=== PATIENT | male | born 1955 | race African-American/Black ===

== ENCOUNTER 2022-06-17 10:24 | Inpatient (IN) | payer MEDICARE, MEDICAID ==
[~2022-06-17] VITALS: Ht 182.9 cm; Wt 92.2 kg
[~2022-06-17 10:24] MED LIST: DOC-Q-LACE; GABAPENTIN; METRONIDAZOLE; SIMVASTATIN; VICODIN
[2022-06-17] MEDS ORDERED: ASPIRIN 81MG TABLET PO ONE (11:30)
[2022-06-17] MEDS ORDERED: SODIUM CHLORIDE 0.9% 250 ML IV ONE (11:30)
[2022-06-17] MEDS ORDERED: PIPERACILLIN/TAZ 3.375G PREMIX 50 ML IV ONE ×2 (14:00→21:45)
[2022-06-17 15:45] LABS: HEMATOCRIT. 41.3 % (42.0-52.0); HEMOGLOBIN. 14.4 g/dL (14.0-18.0); MEAN CORPUSCULAR HEMOGLOBIN 34.2 pg (28.0-32.0); MEAN CORPUSCULAR VOLUME 97.8 fL (80.0-94.0); MEAN PLATELET VOLUME 9.6 fl (7.4-10.4); PLATELET 306 x1000/uL (130-400); RED BLOOD CELL COUNT 4.22 mill/uL (4.7-6.1); RED CELL DISTRIBUTION WIDTH 13.7 % (11.6-14.6)
[2022-06-17 15:52] LABS: CHLORIDE 103 mEq/L (98-107)
[2022-06-17] MEDS ORDERED: ACETAMINOPHEN 325MG TABLET PO PRN ×2 (16:00)
[2022-06-17] MEDS ORDERED: KETOROLAC 15MG/ML VIAL IV PRN (16:00)
[2022-06-17] MEDS ORDERED: IPRATROPIUM/ALBUTEROL 0.5-3(2.5)MG/3ML NEB NEB PRN (16:00)
[2022-06-17] MEDS ORDERED: ONDANSETRON HCL 4MG/2ML INJ IV PRN (16:00)
[2022-06-17] MEDS ORDERED: CLONIDINE 0.1MG TABLET PO PRN (16:00)
[2022-06-17] MEDS ORDERED: DOCUSATE SODIUM 100MG CAPSULE PO PRN (16:00)
[2022-06-17] MEDS ORDERED: NITROGLYCERIN 0.4MG TABLET SL SL PRN (16:00)
[2022-06-17] MEDS ORDERED: GUAIFENESIN 200MG/10ML SUGAR FREE UDC PO PRN (16:00)
[2022-06-17] MEDS ORDERED: MAGNESIUM/ALUMINUM HYDROXIDE/SIMETHICONE 30ML UDC PO PRN (16:00)
[2022-06-17] MEDS ORDERED: CEFTRIAXONE 1 G PREMIX 50 ML IV SCH (17:00)
[2022-06-17 17:17] LABS: PLATELET ESTIMATE NORMAL
[2022-06-17 17:39] LABS: T4 FREE 1.37 ng/dL (0.76-1.46)
[2022-06-17] MEDS ORDERED: AZITHROMYCIN 500MG/250ML 250 ML IV SCH (18:00)
[2022-06-17 18:01] LABS: FOLIC ACID (FOLATE) SERUM >20 ng/mL ng/mL (>5.38); VITAMIN B12 SERUM 1589 pg/mL (211-911)
[2022-06-17] MEDS ORDERED: ZOLPIDEM TARTRATE 5MG TABLET PO PRN (21:00)
[2022-06-17] MEDS ORDERED: ASPIRIN 81MG TABLET PO NR (21:15)
[2022-06-17] MEDS: ASCORBIC ACID 500 MG TABLET PO SCH (21:38)
[2022-06-17] MEDS: AMLODIPINE 10MG TABLET PO SCH (21:38)
[2022-06-17] MEDS: FAMOTIDINE 20MG TABLET PO SCH (21:38)
[2022-06-17] MEDS: GUAIFENESIN 600MG ER TABLET PO SCH (22:05)
[2022-06-18 00:13] LABS: CREATINE KINASE MB FRACTION 2.7 ng/mL (0.5-3.6)
[2022-06-18 01:25] LABS: CLARITY URINE CLEAR (CLEAR); COLOR URINE YELLOW (YELLOW); KETONES URINE NEGATIVE (NEGATIVE); LEUKOCYTE ESTERASE URINE TRACE (NEGATIVE); NITRITE URINE NEGATIVE (NEGATIVE); OCCULT BLOOD URINE NEGATIVE (NEGATIVE); PROTEIN URINE 1+ (NEGATIVE); SPECIFIC GRAVITY URINE 1.009 (1.005-1.030); UROBILINOGEN URINE 0.2 E.U./dL (0.2-1.0)
[2022-06-18 02:03] LABS: *AMPHETAMINES SCREEN URINE NEGATIVE (NEGATIVE); *BARBITURATES SCREEN URINE NEGATIVE (NEGATIVE); *BENZODIAZEPINES SCREEN URINE PRESUMTIVE POSITIVE (NEGATIVE); *COCAINE SCREEN URINE NEGATIVE (NEGATIVE); CANNABINOID URINE SCREEN NEGATIVE (NEGATIVE); METHADONE URINE SCREEN NEGATIVE (NEGATIVE); OPIATES URINE SCREEN NEGATIVE (NEGATIVE); PHENCYCLIDINE URINE SCREEN NEGATIVE (NEGATIVE)
[2022-06-18 04:23] VITALS: BP 145/77
[2022-06-18 08:01] VITALS: BP 121/80
[2022-06-18] MEDS: ASPIRIN 325MG EC TABLET PO SCH (08:02)
[2022-06-18] MEDS: GUAIFENESIN 600MG ER TABLET PO SCH ×2 (08:02→21:14)
[2022-06-18] MEDS: AMLODIPINE 10MG TABLET PO SCH (08:02)
[2022-06-18] MEDS: ASCORBIC ACID 500 MG TABLET PO SCH ×2 (08:03→21:14)
[2022-06-18] MEDS: ZINC SULFATE 220 MG ( 50 ) CAPSULE PO SCH (08:09)
[2022-06-18 09:34] LABS: BASOPHILS % 0.7 % (0.0-2.0); EOSINOPHILS % 3.9 % (0.0-5.0); HEMATOCRIT. 39.4 % (42.0-52.0); HEMOGLOBIN. 13.3 g/dL (14.0-18.0); LYMPHOCYTES % 26.7 % (20.0-50.0); MEAN CORPUSCULAR HEMOGLOBIN 33.4 pg (28.0-32.0); MEAN CORPUSCULAR VOLUME 98.8 fL (80.0-94.0); MEAN PLATELET VOLUME 9.3 fl (7.4-10.4); MONOCYTES % 10.4 % (2.0-8.0); NEUTROPHILS % 58.3 % (40.0-76.0); PLATELET 333 x1000/uL (130-400); RED BLOOD CELL COUNT 3.99 mill/uL (4.7-6.1); RED CELL DISTRIBUTION WIDTH 13.8 % (11.6-14.6)
[2022-06-18 09:43] LABS: CHLORIDE 104 mEq/L (98-107)
[2022-06-18 09:54] LABS: CREATINE KINASE 105 IU/L (39-308); CREATINE KINASE MB FRACTION 3.2 ng/mL (0.5-3.6)
[2022-06-18 12:04] VITALS: BP 124/78
[2022-06-18 16:00] VITALS: BP 134/71
[2022-06-18] MEDS: CEFTRIAXONE 1,000 MG in DEXTROSE 5% WATER 50 ML IV SCH (16:39)
[2022-06-18] MEDS ORDERED: AZITHROMYCIN 500 MG in DEXT 5% WATER 250 ML IV SCH (17:00)
[2022-06-18] MEDS ORDERED: ASPI-1497 PO (19:04)
[2022-06-18] MEDS ORDERED: GABA-290 PO (19:12)
[2022-06-18] MEDS ORDERED: TAMS-11 PO (19:12)
[2022-06-18] MEDS ORDERED: FOLI20CA PO (19:12)
[2022-06-18] MEDS ORDERED: LOSA100T32 PO (19:12)
[2022-06-18] MEDS ORDERED: CARV12.545 PO (19:12)
[2022-06-18] MEDS ORDERED: FERR325T6 PO (19:12)
[2022-06-18] MEDS ORDERED: CHOL100062 PO (19:12)
[2022-06-18] MEDS ORDERED: ATOR-2 PO (19:12)
[2022-06-18] MEDS ORDERED: MELA3TAB71 PO (19:12)
[2022-06-18] MEDS ORDERED: FURO-152 PO (19:12)
[2022-06-18] MEDS ORDERED: NICO1PAT50 TP (19:12)
[2022-06-18] MEDS ORDERED: OMEP20TA23 PO (19:13)
[2022-06-18] MEDS ORDERED: RIVA20TA PO (19:14)
[2022-06-18] MEDS ORDERED: THIA100T88 PO (19:20)
[2022-06-18] MEDS ORDERED: MULT-1223 PO (19:23)
[2022-06-18 20:00] VITALS: BP 143/75
[2022-06-18] MEDS: FAMOTIDINE 20MG TABLET PO SCH (21:14)
[2022-06-19] VITALS (7 sets, daily range): BP systolic 111–150; BP diastolic 54–91
[2022-06-19] MEDS: AMLODIPINE 10MG TABLET PO SCH (09:15)
[2022-06-19] MEDS: ASPIRIN 325MG EC TABLET PO SCH (09:15)
[2022-06-19] MEDS: ZINC SULFATE 220 MG ( 50 ) CAPSULE PO SCH (09:15)
[2022-06-19] MEDS: GUAIFENESIN 600MG ER TABLET PO SCH ×2 (09:15→21:06)
[2022-06-19] MEDS: ASCORBIC ACID 500 MG TABLET PO SCH ×2 (09:16→21:07)
[2022-06-19] MEDS: AZITHROMYCIN 500 MG TABLET PO SCH (17:36)
[2022-06-19] MEDS: CEFTRIAXONE 1,000 MG in DEXTROSE 5% WATER 50 ML IV SCH (18:11)
[2022-06-19] MEDS: FAMOTIDINE 20MG TABLET PO SCH (21:06)
[2022-06-20] VITALS (7 sets, daily range): BP systolic 105–132; BP diastolic 61–86
[2022-06-20] MEDS: ASPIRIN 325MG EC TABLET PO SCH (08:13)
[2022-06-20] MEDS: GUAIFENESIN 600MG ER TABLET PO SCH (08:13)
[2022-06-20] MEDS: ZINC SULFATE 220 MG ( 50 ) CAPSULE PO SCH (08:13)
[2022-06-20] MEDS: AMLODIPINE 10MG TABLET PO SCH (08:16)
[2022-06-20] MEDS: ASCORBIC ACID 500 MG TABLET PO SCH (08:26)
[2022-06-20] MEDS: CEFTRIAXONE 1,000 MG in DEXTROSE 5% WATER 50 ML IV SCH (16:39)
[2022-06-20] MEDS: AZITHROMYCIN 500 MG TABLET PO SCH (17:06)
== END 2022-06-20 21:16 | DRG 193 ==
LOC: ER 10:24 → SUPCPDRO 15:56 → 3WST 16:07 → EDBEDREQTM 21:30 → EDBEDREQ 21:30
PROVIDERS: ADMIT Internal Medicine; ATTEND Internal Medicine
DX: J18.9 Pneumonia, unspecified organism (principal); J96.01 Acute respiratory failure with hypoxia; N17.0 Acute kidney failure with tubular necrosis; E44.0 Moderate protein-calorie malnutrition; I48.92 Unspecified atrial flutter; N18.9 Chronic kidney disease, unspecified; E11.22 Type 2 diabetes mellitus with diabetic chronic kidney disease; I48.91 Unspecified atrial fibrillation; E11.51 Type 2 diabetes mellitus with diabetic peripheral angiopathy without gangrene; F17.210 Nicotine dependence, cigarettes, uncomplicated; I12.9 Hypertensive chronic kidney disease with stage 1 through stage 4 chronic kidney disease, or unspecified chronic kidney disease; I44.1 Atrioventricular block, second degree; I25.2 Old myocardial infarction; Z68.26 Body mass index [BMI] 26.0-26.9, adult; Z74.01 Bed confinement status; Z79.01 Long term (current) use of anticoagulants; Z88.8 Allergy status to other drugs, medicaments and biological substances; Z79.899 Other long term (current) drug therapy; Z89.611 Acquired absence of right leg above knee
CPT/HCPCS: 36415; 71045; 73030; 80053; 80061; 80305; 81003; 82550; 82553; 82607; 82746; 83036; 83540; 83550; 83605; 83735; 83880; 84100; 84145; 84439; 84443; 84484; 85025; 85379; 93005; 93306; 93970; 97162; 99285; J0456; J0696; J2543; J7030; J7060

== ENCOUNTER 2022-08-12 09:15 | Inpatient (IN) | payer MEDICARE, MEDICAID ==
[~2022-08-12] VITALS: Ht 198.1 cm; Wt 91.6 kg
[~2022-08-12 09:15] MED LIST changes: +ASPI-1497 PO; +ATOR-2 PO; +CARV12.545 PO; +CHOL100062 PO; -DOC-Q-LACE; +FERR325T6 PO; +FOLI20CA PO; +FURO-152 PO; +GABA-290 PO; -GABAPENTIN; +LOSA100T32 PO; +MELA3TAB71 PO; -METRONIDAZOLE; +MULT-1223 PO; +NICO1PAT50 TP; +OMEP20TA23 PO; +RIVA20TA PO; -SIMVASTATIN; +TAMS-11 PO; +THIA100T88 PO; -VICODIN
[2022-08-12] MEDS ORDERED: PIPERACILLIN/TAZ 3.375G PREMIX 50 ML IV ONE (09:30)
[2022-08-12] MEDS ORDERED: VANCOMYCIN 1G PREMIX 200 ML IV ONE (09:30)
[2022-08-12 10:00] LABS: HEMATOCRIT. 27.6 % (42.0-52.0); HEMOGLOBIN. 9.3 g/dL (14.0-18.0); MEAN CORPUSCULAR HEMOGLOBIN 32.8 pg (28.0-32.0); MEAN CORPUSCULAR VOLUME 97.1 fL (80.0-94.0); MEAN PLATELET VOLUME 8.2 fl (7.4-10.4); PLATELET 281 x1000/uL (130-400); RED BLOOD CELL COUNT 2.85 mill/uL (4.7-6.1); RED CELL DISTRIBUTION WIDTH 16.2 % (11.6-14.6)
[2022-08-12 10:06] LABS: INR 1.4; PROTHROMBIN TIME 14.5 sec (9.6-11.0)
[2022-08-12 10:36] LABS: PLATELET ESTIMATE NORMAL
[2022-08-12] MEDS ORDERED: MORPHINE SULFATE 2 MG/ML CPJ (NOT FOR IM USE) IV PRN (11:00)
[2022-08-12] MEDS ORDERED: ONDANSETRON HCL 4MG/2ML INJ IV PRN (11:00)
[2022-08-12] MEDS ORDERED: GUAIFENESIN 200MG/10ML SUGAR FREE UDC PO PRN (11:00)
[2022-08-12] MEDS ORDERED: NA PHOS,M-B/NA PHOS,DI-BA ENEMA 118ML PR PRN (11:00)
[2022-08-12] MEDS ORDERED: IPRATROPIUM/ALBUTEROL 0.5-3(2.5)MG/3ML NEB NEB PRN (11:00)
[2022-08-12] MEDS ORDERED: HYDROCODONE/ACETAMINOPHEN 7.5/325MG TABLET PO PRN (11:00)
[2022-08-12] MEDS ORDERED: ENOXAPARIN 40MG/0.4ML SYR SUBCUT SCH (11:00)
[2022-08-12] MEDS ORDERED: HYDROCODONE/ACETAMINOPHEN 5/325MG TABLET PO PRN (11:00)
[2022-08-12] MEDS: SODIUM CHLORIDE 0.9% 1,000 ML IV SCH (11:00)
[2022-08-12 11:23] LABS: CHLORIDE 104 mEq/L (98-107)
[2022-08-12] MEDS ORDERED: NALOXONE HCL 0.4MG/ML VIAL IV PRN (12:00)
[2022-08-12 12:18] LABS: CLARITY URINE CLOUDY (CLEAR); COLOR URINE YELLOW (YELLOW); KETONES URINE TRACE (NEGATIVE); LEUKOCYTE ESTERASE URINE 2+ (NEGATIVE); NITRITE URINE NEGATIVE (NEGATIVE); OCCULT BLOOD URINE 2+ (NEGATIVE); PH URINE 5.5 (4.5-8.0); PROTEIN URINE 1+ (NEGATIVE); SPECIFIC GRAVITY URINE 1.012 (1.005-1.030)
[2022-08-12 12:59] LABS: *AMPHETAMINES SCREEN URINE NEGATIVE (NEGATIVE); *BARBITURATES SCREEN URINE NEGATIVE (NEGATIVE); *BENZODIAZEPINES SCREEN URINE NEGATIVE (NEGATIVE); *COCAINE SCREEN URINE NEGATIVE (NEGATIVE); CANNABINOID URINE SCREEN NEGATIVE (NEGATIVE); METHADONE URINE SCREEN NEGATIVE (NEGATIVE); OPIATES URINE SCREEN NEGATIVE (NEGATIVE); PHENCYCLIDINE URINE SCREEN NEGATIVE (NEGATIVE)
[2022-08-12 16:00] VITALS: BP 103/55
[2022-08-12] MEDS ORDERED: CHOL400D7 PO (16:44)
[2022-08-12] MEDS ORDERED: MULT-1146 MT (16:44)
[2022-08-12] MEDS ORDERED: RIVA20TA PO (16:44)
[2022-08-12] MEDS ORDERED: GABA-290 PO (16:44)
[2022-08-12] MEDS ORDERED: LOSA100T32 PO (16:44)
[2022-08-12] MEDS ORDERED: FOLI-43 PO (16:44)
[2022-08-12] MEDS ORDERED: ATOR-2 PO (16:44)
[2022-08-12] MEDS ORDERED: CAPS42.514 TP (16:44)
[2022-08-12] MEDS ORDERED: THIA250T3 PO (16:44)
[2022-08-12] MEDS ORDERED: FERR325T6 PO (16:44)
[2022-08-12] MEDS ORDERED: CARV25TA47 PO (16:44)
[2022-08-12 17:29] VITALS: BP 103/54
[2022-08-12 20:00] VITALS: BP 98/51
[2022-08-13] VITALS: BP 101/50
[2022-08-13] MEDS ORDERED: LEVOFLOXACIN 500MG PREMIX 100 ML IV NR
[2022-08-13 04:00] VITALS: BP 109/54
[2022-08-13] MEDS: SODIUM CHLORIDE 0.9% 1,000 ML IV SCH ×2 (05:22→21:19)
[2022-08-13] MEDS: METRONIDAZOLE 500 MG PREMIX 100 ML IV SCH ×4 (05:23→22:57)
[2022-08-13 08:00] VITALS: BP 117/58
[2022-08-13] MEDS: FOLIC ACID 1MG TABLET PO SCH (09:33)
[2022-08-13 12:00] VITALS: BP 129/71
[2022-08-13 16:00] VITALS: BP 153/71
[2022-08-13] MEDS ORDERED: RIVAROXABAN 20 MG TABLET PO SCH (17:00)
[2022-08-13] MEDS ORDERED: LACTULOSE 20G/30ML UDC PO PRN (18:00)
[2022-08-13] MEDS ORDERED: IPRATROPIUM/ALBUTEROL 0.5-3(2.5)MG/3ML NEB HHN PRN (18:00)
[2022-08-13 20:00] VITALS: BP 160/82
[2022-08-13] MEDS: LACTULOSE 20G/30ML UDC PO SCH (22:00)
[2022-08-14] VITALS: BP 119/77
[2022-08-14] MEDS ORDERED: LEVOFLOXACIN 250MG PREMIX 50 ML IV SCH
[2022-08-14 04:00] VITALS: BP 150/76
[2022-08-14] MEDS: LACTULOSE 20G/30ML UDC PO SCH ×3 (06:00→21:45)
[2022-08-14] MEDS: METRONIDAZOLE 500 MG PREMIX 100 ML IV SCH ×2 (06:24→14:45)
[2022-08-14 08:00] VITALS: BP 156/85
[2022-08-14] MEDS: FOLIC ACID 1MG TABLET PO SCH (09:58)
[2022-08-14] MEDS: APIXABAN 5 MG TABLET PO SCH ×2 (09:58→17:54)
[2022-08-14] MEDS: METOPROLOL TARTRATE 25MG TABLET PO SCH ×2 (09:59→21:00)
[2022-08-14] MEDS ORDERED: NA PHOS,M-B/NA PHOS,DI-BA ENEMA 118ML PR SCH (11:30)
[2022-08-14] MEDS: SODIUM CHLORIDE 0.9% 1,000 ML IV SCH (13:00)
[2022-08-14] MEDS: MEROPENEM 1,000 MG in SODIUM CHLORIDE 0.9% 100 ML IV SCH (17:54)
[2022-08-14 20:00] VITALS: BP 101/59
[2022-08-15] VITALS: BP 141/74
[2022-08-15 04:00] VITALS: BP 141/76
[2022-08-15] MEDS: SODIUM CHLORIDE 0.9% 1,000 ML IV SCH (04:31)
[2022-08-15] MEDS: MEROPENEM 1,000 MG in SODIUM CHLORIDE 0.9% 100 ML IV SCH ×2 (04:31→17:09)
[2022-08-15] MEDS: LACTULOSE 20G/30ML UDC PO SCH ×3 (05:00→21:33)
[2022-08-15 07:03] LABS: BASOPHILS % 0.4 % (0.0-2.0); EOSINOPHILS % 1.7 % (0.0-5.0); HEMATOCRIT. 31.5 % (42.0-52.0); HEMOGLOBIN. 10.9 g/dL (14.0-18.0); LYMPHOCYTES % 16.2 % (20.0-50.0); MEAN CORPUSCULAR HEMOGLOBIN 33.4 pg (28.0-32.0); MEAN CORPUSCULAR VOLUME 96.6 fL (80.0-94.0); MEAN PLATELET VOLUME 8.4 fl (7.4-10.4); MONOCYTES % 10.7 % (2.0-8.0); PLATELET 333 x1000/uL (130-400); RED BLOOD CELL COUNT 3.26 mill/uL (4.7-6.1); RED CELL DISTRIBUTION WIDTH 16.8 % (11.6-14.6)
[2022-08-15 08:00] VITALS: BP 141/63
[2022-08-15] MEDS ORDERED: PANTOPRAZOLE SODIUM 40 MG/VIAL IV SCH (09:00)
[2022-08-15] MEDS: METOPROLOL TARTRATE 25MG TABLET PO SCH ×2 (09:16→21:33)
[2022-08-15] MEDS: FOLIC ACID 1MG TABLET PO SCH (09:16)
[2022-08-15] MEDS: APIXABAN 5 MG TABLET PO SCH ×2 (09:16→17:09)
[2022-08-15 12:00] VITALS: BP 122/73
[2022-08-15] MEDS ORDERED: SODIUM POLYSTYRENE SULFONATE 15 G/60 ML BOT PO NR (14:15)
[2022-08-15 16:30] VITALS: BP 137/72
[2022-08-15 20:00] VITALS: BP 134/65
[2022-08-16] VITALS: BP 136/62
[2022-08-16 04:00] VITALS: BP 105/69
[2022-08-16] MEDS: LACTULOSE 20G/30ML UDC PO SCH ×3 (05:18→22:09)
[2022-08-16] MEDS: MEROPENEM 1,000 MG in SODIUM CHLORIDE 0.9% 100 ML IV SCH (05:18)
[2022-08-16 08:00] VITALS: BP 144/68
[2022-08-16] MEDS: FOLIC ACID 1MG TABLET PO SCH (09:36)
[2022-08-16] MEDS: METOPROLOL TARTRATE 25MG TABLET PO SCH ×2 (09:37→22:09)
[2022-08-16] MEDS: APIXABAN 5 MG TABLET PO SCH ×2 (09:37→17:40)
[2022-08-16 12:00] VITALS: BP 105/50
[2022-08-16 16:00] VITALS: BP 110/55
[2022-08-16 20:00] VITALS: BP 137/61
[2022-08-17] VITALS: BP 130/65
[2022-08-17 04:00] VITALS: BP 134/78
[2022-08-17] MEDS: LACTULOSE 20G/30ML UDC PO SCH ×3 (06:05→22:35)
[2022-08-17 07:28] LABS: PHOSPHORUS 2.3 mg/dL (2.5-4.9)
[2022-08-17 08:09] VITALS: BP 141/64
[2022-08-17] MEDS: METOPROLOL TARTRATE 25MG TABLET PO SCH (08:46)
[2022-08-17] MEDS: APIXABAN 5 MG TABLET PO SCH ×2 (08:46→16:44)
[2022-08-17] MEDS: FOLIC ACID 1MG TABLET PO SCH (08:46)
[2022-08-17 12:03] VITALS: BP 145/79
[2022-08-17 16:01] VITALS: BP 111/78
[2022-08-17 16:22] LABS: HEMOGLOBIN. 9.2 g/dL (14.0-18.0); MEAN CORPUSCULAR HEMOGLOBIN 31.9 pg (28.0-32.0); MEAN PLATELET VOLUME 8.1 fl (7.4-10.4); PLATELET 284 x1000/uL (130-400); RED BLOOD CELL COUNT 2.89 mill/uL (4.7-6.1)
[2022-08-17] MEDS: PIPERACILLIN/TAZOBACTAM 3.375 G in DEXTROSE 5% WATER 50 ML IV SCH ×2 (16:44→22:40)
[2022-08-17 17:20] LABS: FOLIC ACID (FOLATE) SERUM >20 ng/mL ng/mL (>5.38); VITAMIN B12 SERUM 909 pg/mL (211-911)
[2022-08-17 19:58] LABS: PLATELET ESTIMATE NORMAL
[2022-08-17 20:00] VITALS: BP 144/70
[2022-08-17 21:39] LABS: FERRITIN 42 ng/mL (22-322)
[2022-08-17] MEDS: METOPROLOL TARTRATE 50MG TABLET PO SCH (22:36)
[2022-08-18] VITALS: BP 138/71
[2022-08-18 04:00] VITALS: BP 137/52
[2022-08-18] MEDS: LACTULOSE 20G/30ML UDC PO SCH ×3 (06:00→22:00)
[2022-08-18] MEDS: PIPERACILLIN/TAZOBACTAM 3.375 G in DEXTROSE 5% WATER 50 ML IV SCH ×3 (06:29→22:46)
[2022-08-18 08:00] VITALS: BP 126/72
[2022-08-18] MEDS: FOLIC ACID 1MG TABLET PO SCH (09:06)
[2022-08-18] MEDS: METOPROLOL TARTRATE 50MG TABLET PO SCH ×2 (09:07→22:46)
[2022-08-18] MEDS: APIXABAN 5 MG TABLET PO SCH ×2 (09:07→17:10)
[2022-08-18 12:00] VITALS: BP 144/62
[2022-08-18 16:00] VITALS: BP 140/60
[2022-08-18 20:00] VITALS: BP 156/85
[2022-08-19] VITALS: BP 138/91
[2022-08-19 04:00] VITALS: BP 139/61
[2022-08-19] MEDS: LACTULOSE 20G/30ML UDC PO SCH ×2 (06:00→14:00)
[2022-08-19] MEDS: PIPERACILLIN/TAZOBACTAM 3.375 G in DEXTROSE 5% WATER 50 ML IV SCH ×2 (06:55→14:00)
[2022-08-19 08:00] VITALS: BP 159/72
[2022-08-19 09:21] VITALS: BP 138/67
[2022-08-19] MEDS: FOLIC ACID 1MG TABLET PO SCH (09:27)
[2022-08-19] MEDS: APIXABAN 5 MG TABLET PO SCH ×2 (09:27→17:49)
[2022-08-19] MEDS: METOPROLOL TARTRATE 50MG TABLET PO SCH (09:27)
[2022-08-19 12:00] VITALS: BP 133/76
[2022-08-19 14:04] VITALS: BP 133/76
== END 2022-08-19 18:00 | disposition home or self-care (01) | DRG 871 ==
LOC: ER 09:15 → 7WST 10:48 → EDBEDREQ 10:53 → EDBEDREQTM 10:53
PROVIDERS: ADMIT Internal Medicine Nephrology; ATTEND Internal Medicine Nephrology
DX: A41.9 Sepsis, unspecified organism (principal); G93.41 Metabolic encephalopathy; J18.9 Pneumonia, unspecified organism; L97.422 Non-pressure chronic ulcer of left heel and midfoot with fat layer exposed; J98.11 Atelectasis; I47.20 Ventricular tachycardia, unspecified; I82.412 Acute embolism and thrombosis of left femoral vein; N17.9 Acute kidney failure, unspecified; I48.92 Unspecified atrial flutter; N39.0 Urinary tract infection, site not specified; E44.0 Moderate protein-calorie malnutrition; I82.402 Acute embolism and thrombosis of unspecified deep veins of left lower extremity; K57.90 Diverticulosis of intestine, part unspecified, without perforation or abscess without bleeding; I25.10 Atherosclerotic heart disease of native coronary artery without angina pectoris; D63.8 Anemia in other chronic diseases classified elsewhere; E11.51 Type 2 diabetes mellitus with diabetic peripheral angiopathy without gangrene; E11.621 Type 2 diabetes mellitus with foot ulcer; K56.41 Fecal impaction; K80.20 Calculus of gallbladder without cholecystitis without obstruction; N40.0 Benign prostatic hyperplasia without lower urinary tract symptoms; D53.9 Nutritional anemia, unspecified; E78.5 Hyperlipidemia, unspecified; E87.5 Hyperkalemia; R74.01 Elevation of levels of liver transaminase levels; N18.9 Chronic kidney disease, unspecified; E11.22 Type 2 diabetes mellitus with diabetic chronic kidney disease; R65.20 Severe sepsis without septic shock; K83.8 Other specified diseases of biliary tract; L97.529 Non-pressure chronic ulcer of other part of left foot with unspecified severity; Z79.01 Long term (current) use of anticoagulants; Z86.718 Personal history of other venous thrombosis and embolism; Z86.73 Personal history of transient ischemic attack (TIA), and cerebral infarction without residual deficits; Z68.30 Body mass index [BMI] 30.0-30.9, adult; Z89.611 Acquired absence of right leg above knee; Z82.49 Family history of ischemic heart disease and other diseases of the circulatory system; Z89.511 Acquired absence of right leg below knee
CPT/HCPCS: 36415; 71045; 71250; 73630; 74176; 74181; 76700; 80048; 80053; 80076; 80305; 81003; 82270; 82607; 82728; 82746; 82977; 83540; 83550; 83605; 83735; 84100; 84145; 84484; 85025; 85044; 87186; 93005; 93306; 93970; 94640; 99291; C1893; C9113; J1956; J2185; J2405; J2543; J3370; J3490; J7050; J7060